=== PATIENT | male | born 1980 | race Caucasian/White ===

== ENCOUNTER 2016-06-05 | Outpatient (CLI) | payer OTHER | END 2016-06-05 05:15 | disposition short-term general hospital (02) | CPT/HCPCS: A0425; A0427 ==

== ENCOUNTER 2016-06-21 | Outpatient (CLI) | payer OTHER | END 2016-06-21 20:15 | disposition critical access hospital (66) | CPT/HCPCS: A0425; A0429 ==

== ENCOUNTER 2016-06-21 20:31 | Emergency (ER) | payer OTHER ==
[2016-06-21] MEDS ORDERED: DEXAMETHASONE 10 MG/ML VIAL IVP STA (21:10)
[2016-06-21] MEDS ORDERED: HYDROmorphone 1 MG/ML SYRINGE IVP STA (21:10)
[2016-06-21] MEDS ORDERED: KETOROLAC 60 MG/2 ML VIAL IVP STA (21:10)
[2016-06-21] MEDS ORDERED: KETOROLAC 30 MG/ML VIAL ONE (21:15)
[2016-06-21] MEDS ORDERED: DEXAMETHASONE 10 MG/ML VIAL ONE ×2 (21:15→21:32)
[2016-06-21] MEDS ORDERED: HYDROmorphone 1 MG/ML SYRINGE ONE ×2 (21:15→21:34)
[2016-06-21] MEDS ORDERED: CHERRY SYRUP 10 ML UDC PO ONE (21:32)
[2016-06-21] MEDS ORDERED: KETOROLAC 60 MG/2 ML VIAL ONE (21:34)
[2016-06-21] MEDS ORDERED: ONDANSETRON 4 MG/2 ML VIAL IVP STA (22:03)
[2016-06-21] MEDS ORDERED: ONDANSETRON 4 MG/2 ML VIAL ONE (22:07)
[2016-06-21] MEDS ORDERED: KETAMINE 500 MG/10 ML VIAL IVP STA (22:36)
[2016-06-21] MEDS ORDERED: KETAMINE 500 MG/10 ML VIAL ONE (22:42)
== END 2016-06-21 23:56 | disposition home or self-care (01) ==
DX: M54.41 Lumbago with sciatica, right side (principal); G89.29 Other chronic pain; R00.0 Tachycardia, unspecified; T41.295A Adverse effect of other general anesthetics, initial encounter; Y92.238 Other place in hospital as the place of occurrence of the external cause
CPT/HCPCS: 96374; 96375; 99284; A9270; J1170